=== PATIENT | male | born 1985 | race Caucasian/White ===

== ENCOUNTER 2017-09-10 14:20 | Emergency (ER) | payer SELFPAY ==
[~2017-09-10] VITALS: Ht 172.7 cm; Wt 68.0 kg
[2017-09-10] MEDS ORDERED: CEFTRIAXONE SODIUM 1 G/VIAL IM ONE (16:15)
[2017-09-10] MEDS ORDERED: HYDROCODONE/ACETAMINOPHEN 5/325MG TABLET PO ONE (16:30)
[2017-09-10] MEDS ORDERED: BACITRACIN ZINC OINT UDPKT TOP ONE (16:30)
[2017-09-10 17:18] VITALS: BP 122/86
== END 2017-09-10 17:21 | disposition home or self-care (01) ==
LOC: ER 14:20
DX: S61.256A Open bite of right little finger without damage to nail, initial encounter (principal); Y04.1XXA Assault by human bite, initial encounter; Y93.89 Activity, other specified; Y92.89 Other specified places as the place of occurrence of the external cause; R03.0 Elevated blood-pressure reading, without diagnosis of hypertension
CPT/HCPCS: 73140; 87070; 87205; 96372; 99285; J0696; Z7610

== ENCOUNTER 2021-03-25 11:40 | Emergency (ER) | payer MEDICAID ==
[~2021-03-25] VITALS: Ht 172.7 cm; Wt 68.0 kg
[2021-03-25] MEDS ORDERED: ACETAMINOPHEN 325MG TABLET PO ONE (13:45)
[2021-03-25] MEDS ORDERED: LIDOCAINE 5% PATCH TOP SCH (14:10)
[2021-03-25 14:27] VITALS: BP 136/86
[2021-03-25] MEDS ORDERED: HYDR-4001 MT (14:42)
[2021-03-25] MEDS ORDERED: LIDO700A15 TP (14:42)
== END 2021-03-25 15:01 | disposition home or self-care (01) ==
LOC: ER 11:40
DX: S22.42XA Multiple fractures of ribs, left side, initial encounter for closed fracture (principal); S62.637A Displaced fracture of distal phalanx of left little finger, initial encounter for closed fracture; M20.012 Mallet finger of left finger(s); R03.0 Elevated blood-pressure reading, without diagnosis of hypertension; W10.9XXA Fall (on) (from) unspecified stairs and steps, initial encounter; Y93.55 Activity, bike riding; Y92.488 Other paved roadways as the place of occurrence of the external cause
CPT/HCPCS: 29130; 71101; 73140; 99284

== ENCOUNTER 2021-03-30 12:58 | Emergency (ER) | payer MEDICAID ==
[~2021-03-30] VITALS: Ht 172.7 cm; Wt 70.0 kg
[~2021-03-30 12:58] MED LIST: HYDR-4001 MT; LIDO700A15 TP
[2021-03-30 13:31] VITALS: BP 98/78
[2021-03-30] MEDS ORDERED: TRAM50TA3 PO (13:54)
[2021-03-30] MEDS ORDERED: NAPR-681 PO (13:54)
[2021-03-30] MEDS ORDERED: CYCL5TAB PO (15:16)
== END 2021-03-30 15:49 | disposition home or self-care (01) ==
LOC: ER 12:58
DX: S22.42XA Multiple fractures of ribs, left side, initial encounter for closed fracture (principal); M20.012 Mallet finger of left finger(s); V29.9XXA Motorcycle rider (driver) (passenger) injured in unspecified traffic accident, initial encounter; Y93.89 Activity, other specified; Y92.488 Other paved roadways as the place of occurrence of the external cause
CPT/HCPCS: 99283

== ENCOUNTER 2023-08-06 20:02 | Emergency (ER) | payer MEDICAID, OTHER ==
[~2023-08-06] VITALS: Ht 172.7 cm; Wt 69.0 kg
[~2023-08-06 20:02] MED LIST changes: +CYCL5TAB PO; +NAPR-681 PO
[2023-08-06 20:19] VITALS: BP 130/78; RESP 16; TEMP 98.6; O2SAT 98
[2023-08-06 20:27] VITALS: PULSE 91
== END 2023-08-06 22:38 | disposition left against medical advice (07) ==
LOC: ER 20:02
DX: R68.84 Jaw pain (principal); Z53.21 Procedure and treatment not carried out due to patient leaving prior to being seen by health care provider

== ENCOUNTER 2023-08-08 12:44 | Emergency (ER) | payer MEDICAID ==
[~2023-08-08] VITALS: Ht 170.2 cm; Wt 74.0 kg
[2023-08-08 12:53] VITALS: O2SAT 98
[2023-08-08] MEDS ORDERED: KETOROLAC 15MG/ML VIAL IM ONE (14:45)
[2023-08-08] MEDS ORDERED: NAPR-1176 MT (16:43)
[2023-08-08] MEDS ORDERED: LIDO700A15 TP (16:43)
[2023-08-08] MEDS: IBUPROFEN 600MG TABLET PO ONE (17:40)
[2023-08-08 17:51] VITALS: BP 128/73; PULSE 82; RESP 18; TEMP 98.7
== END 2023-08-08 17:52 | disposition home or self-care (01) ==
LOC: ER 12:44
DX: S02.69XA Fracture of mandible of other specified site, initial encounter for closed fracture (principal); X58.XXXA Exposure to other specified factors, initial encounter; Y93.89 Activity, other specified; Y92.89 Other specified places as the place of occurrence of the external cause; Y99.8 Other external cause status
CPT/HCPCS: 70110; 99283